=== PATIENT | female | born 1975 | race Caucasian/White ===

== ENCOUNTER → 2019-01-22 | Outpatient (CLI) | payer OTHER ==
--- NOTE | 2019-01-22 14:14 | Diagnostic Imaging Report ---
CT scan of the LEFT HAND, WITHOUT contrast. TECHNIQUE: Standard departmental protocols were used. Coronal and sagittal reformats are available. HISTORY: Injury, fell, sprain, pain, swelling, query fracture COMPARISON: None available FINDINGS: Bones: Mildly comminuted, intra-articular, minimally impacted fracture of the distal radial diaphysis. Mild ulnar minus variance. Joints: Dorsal subluxation of the distal ulna, which can be accentuated by rotation/supination. Mild widening of the scapholunate interval. Soft tissues: Regional soft tissue swelling. IMPRESSION: 1. Mildly impacted, mildly comminuted, intra-articular fracture of the distal radius. 2. 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 Signed by: Bo Munson.O., M.M.M. on 01/22/2019 2:11 PM
== END ==
LOC: CT 12:24
PROVIDERS: ATTEND Family Medicine
DX: S69.92XA Unspecified injury of left wrist, hand and finger(s), initial encounter (principal)